=== PATIENT | male | born 1970 | race Caucasian/White ===

== ENCOUNTER 2020-09-30 05:24 | Observation (INO) ==
[2020-09-30] MEDS ORDERED: Acetaminophen IV 1,000 MG/100 ML BAG IVPB ONE ×2 (09:29→19:01)
[2020-09-30] MEDS ORDERED: Pantoprazole 40 MG VIAL IVP SCH (09:45)
[2020-09-30] MEDS: Piperacillin/Tazobactam 3.375 GM in 0.9 % Sodium Chloride Mini Bag 100 ML IVPB SCH ×2 (10:31→18:54)
[2020-09-30] MEDS: 0.9 % Sodium Chloride 1,000 ML IVC SCH ×2 (10:34→18:54)
[2020-09-30] MEDS ORDERED: 0.9 % Sodium Chloride 1,000 ML IVC ONE (16:09)
[2020-09-30] MEDS ORDERED: Ondansetron 4 MG/2 ML VIAL IVP ONE (16:10)
[2020-09-30] MEDS ORDERED: *HR* FentaNYL (PF) 100 MCG/2 ML VIAL ONE (18:21)
[2020-09-30] MEDS ORDERED: *HR* Succinylcholine 200 MG/10 ML VIAL IVP ONE (18:21)
[2020-09-30] MEDS ORDERED: Lidocaine -MPF 2% 2 ML VIAL ONE (18:21)
[2020-09-30] MEDS ORDERED: Ondansetron 4 MG/2 ML VIAL ONE (18:21)
[2020-09-30] MEDS ORDERED: Dexamethasone 4 MG/ML VIAL ONE (18:21)
[2020-09-30] MEDS ORDERED: *HR* Rocuronium Bromide 50 MG/5 ML VIAL ONE (18:21)
[2020-09-30] MEDS ORDERED: Sugammadex Sodium 200 MG/2 ML VIAL IV ONE (18:21)
[2020-09-30] MEDS ORDERED: *HR* Propofol 200 MG/20 ML VIAL IVP ONE (18:22)
[2020-09-30] MEDS ORDERED: *HR* Midazolam HCl 2 MG/2 ML VIAL ONE (18:22)
[2020-09-30] MEDS ORDERED: Lidocaine HCL 4 ML Topical Solution (Laryng-O-Jet Kit Sterile Pak) TP ONE (18:41)
[2020-09-30] MEDS ORDERED: *HR* PHENYLEPHRINE 1,000 MCG/10 ML SYRINGE IVP ONE (19:12)
[2020-09-30] MEDS ORDERED: Promethazine 6.25 MG in Water for inj. (sterile) 20 ML IVPB PRN (20:01)
[2020-09-30] MEDS ORDERED: Ondansetron 4 MG/2 ML VIAL IVP PRN (20:01)
[2020-09-30] MEDS ORDERED: *HR* HYDROcodone/Acet 5/325 mg TABLET PO PRN (20:01)
[2020-09-30] MEDS ORDERED: *HR* Labetalol 20 MG/4 ML SYRINGE IVP PRN (20:01)
[2020-09-30] MEDS ORDERED: *HR* HYDROmorphone (PF) 1 MG/ML SYRINGE ONE (20:04)
[2020-09-30] MEDS: *HR* HYDROmorphone (PF) 1 MG/ML SYRINGE IVP PRN ×3 (20:06→20:33)
[2020-10-01] MEDS: Piperacillin/Tazobactam 3.375 GM in 0.9 % Sodium Chloride Mini Bag 100 ML IVPB SCH ×2 (02:40→08:15)
[2020-10-01 07:47] VITALS: BP 127/80
[2020-10-01] MEDS ORDERED: Pantoprazole 40 MG VIAL IVP SCH (09:00)
[2020-10-01] MEDS ORDERED: Acetaminophen IV 1,000 MG/100 ML BAG IVPB ONE (10:14)
[2020-10-01] MEDS ORDERED: Ketorolac 30 MG/ML VIAL IVP ONE (10:14)
[2020-10-01] MEDS ORDERED: Famotidine 20 MG/2 ML VIAL IVP ONE (10:15)
[2020-10-01] MEDS ORDERED: *HR* OxyCODONE Immed Rel 5 MG TABLET PO PRN (10:16)
== END 2020-10-01 14:53 | disposition home or self-care (01) ==
LOC: 3ANU
PROVIDERS: ADMIT Surgery; ATTEND Surgery